=== PATIENT | male | born 1945 | race Caucasian/White ===

== ENCOUNTER 2018-10-21 00:55 | Emergency (ER) | payer MEDICARE, MEDICAID ==
--- NOTE | 2018-10-21 09:35 | CT ---
PRELIMINARY REPORT/[facility]/EMERGENCY AFTER HOURS PROCEDURE: EXAM: CT Head Without Contrast EXAM DATE/TIME: 10/21/2018 1:11 AM CLINICAL HISTORY: 73 years old, male; Injury or trauma; Fall; Initial encounter; Blunt trauma (contusions or hematomas) ; Consciousness not specified; Injury date: 10/21/2018; Patient HX: S/P fall TECHNIQUE: Axial computed tomography images of the head/brain without contrast. All CT scans at this facility use at least one of these dose optimization techniques: automated expos ure control; mA and/or kV adjustment per patient size (includes targeted exams where dose is matched to clinical indication); or iterative reconstruction. COMPARISON: No relevant prior studies available. FINDINGS: Brain: There is age-related diffuse cerebral and cerebellar volume loss and chronic microvascular isc hemic disease. 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 Ventricles: There is ex vacuo dilation of the left lateral ventricle. Bones/joints: Unremarkable. No acute fracture. Sinuses: Visualized sinuses are unremarkable. No acute sinusitis. Mastoid air cells: Visualized mastoid air cells are unremarkable. No mastoid effusion. Soft tissues: Unremarkable. IMPRESSION: 1. There is age-related diffuse cerebral and cerebellar volume loss and chronic microvascular ischemi c disease. There is multifocal chronic infarcts with adverse infarct in the left MCA distribution and a second infarct likely in the left posterior cerebral artery distribution with associated encephalo malacia. 2. No acute intracranial pathology. Thank you for allowing us to participate in the care of your patient. Dictated and Authenticated by: Lio Ndiaye MD 10/21/2018 1:46 AM Central Time ([place] & [place]) FINAL REPORT EMERGENCY AFTER HOURS CT BRAIN PERFORMED WITHOUT CONTRAST ENHANCEMENT: Date: 10/21/18 HISTORY: Fall with head injury. COMPARISON: 07/06/18 examination. FINDINGS: There is generalized ventricular and sulcal prominence. Encephalomalacia change in the left middle ce rebral artery territory is present. Also, there is an area in the left occipital region. There are no signs of intracerebral hemorrhage or extra-axial fluid collections. IMPRESSION: Stable overall exam. No acute intracranial abnormalities. This report is in agreement with the preliminary report issued by [facility]. POS: [facility]
== END 2018-10-21 02:05 | disposition home or self-care (01) ==
LOC: BURERS 00:55
DX: S00.83XA Contusion of other part of head, initial encounter (principal); I48.91 Unspecified atrial fibrillation; E78.5 Hyperlipidemia, unspecified; I11.0 Hypertensive heart disease with heart failure; I50.9 Heart failure, unspecified; E11.9 Type 2 diabetes mellitus without complications; Z86.73 Personal history of transient ischemic attack (TIA), and cerebral infarction without residual deficits; I25.2 Old myocardial infarction; F32.9 Major depressive disorder, single episode, unspecified; Z79.899 Other long term (current) drug therapy; Z79.4 Long term (current) use of insulin; W06.XXXA Fall from bed, initial encounter
CPT/HCPCS: 70450